=== PATIENT | male | born 1960 | race Caucasian/White ===

== ENCOUNTER → 2024-05-01 | Outpatient (CLI) | payer BC ==
[~2024-05-01] MED LIST: REGADENOSON 0.4 MG/5 ML SYRINGE IV PRN
--- NOTE | 2024-05-01 12:28 | NM ---
EXAMINATION TYPE: NM stress lexiscan cardiolite DATE OF EXAM: 05/01/2024 COMPARISON: NONE HISTORY: Previous abnormal cardiovascular testing TECHNIQUE: After the intravenous administration of 7.6 mCi Tc 99m Sestamibi - Cardiolite resting SPE CT images acquired 45 minutes post injection. At peak stress 23.3 mCi Tc 99m Sestamibi - Stress images obtained 50 minutes post injection The patient was stressed with 0.4mg Lexiscan. FINDINGS: No fixed defects are evident No reversible stress defects on Spect images Wall motion is normal. Polar maps are normal. Ejection fraction is calculated to be 57 %. IMPRESSION: 1. No scintigraphic evidence for stress-induced ischemic change. No prior infarcts identified. [facility], , 05/01/2024 12:26 PM
--- NOTE | 2024-05-01 18:04 | CA ---
Lexiscan Nuclear Stress Test Report Name: Hernan Resendez Exam Date: 05/01/2024 10:28 Exam Location: [place] Stress Ht (in): 71 Wt (lb): 255 BSA: 2.34 Ordering Phys: Joao Gates MD Referring Phys: Hansa Rich PAC Technologist: [place] Age: 63 Gender: M : 1960 Procedure CPT: Indications: R94.39 ABNORMAL RESULT OF OTHER CARDIOVASCULAR FUN ICD-10 Codes: Patient History: Abnormal function study. Hypertension. Short of breath and palpitations Medications: Meds past 24 hrs: Pretest Chest Pain: STRESS TEST Lexiscan Protocol Exercise Duration (min:sec): 02:[address] Depressions (mm): Angina Score: Taylor Score: Resting HR (bpm): 65 Peak HR (bpm): 85 Resting BP (mmHg): 139 / 78 Peak BP (mmHg): 154 / 70 MPHR: 159 Target HR: 135 % MPHR: 53 METS: 1.0 Total Dose: Peak Dose: Atropine: Double Product: 11747 BP Response: Stress Termination: Infusion complete Stress Symptoms: No chest pain or symptoms Stress Summary: ECG ANALYSIS Resting ECG: Sinus rhythm with right bundle branch block Stress ECG: Patient was given Lexiscan as per protocol did not have chest pain and EKG changes are inconclusive CONCLUSIONS Inconclusive EKG portion of the stress test due to baseline EKG abnormalities Cardiolite portion of the stress test will be reported separately Dr. Rancho Guevara MD (Electronically Signed) Final Date: 01 May 2024 18:03
== END | disposition home or self-care (01) ==
LOC: RADNMMAIN 08:24
PROVIDERS: ATTEND Family Medicine
DX: R94.31 Abnormal electrocardiogram [ECG] [EKG] (principal)
CPT/HCPCS: 93017; 78452; A9500; J2785